=== PATIENT | male | born 1990 | race Caucasian/White ===

== ENCOUNTER 2020-06-30 21:00 | Emergency (ER) | payer OTHER ==
[~2020-06-30] VITALS: Ht 165.1 cm; Wt 77.9 kg
[2020-06-30 23:19] LABS: BASO # 0.1 10^3/uL (0.0-0.2); BASO % 0.7 % (0.0-1.0); EOS # 0.4 10^3/uL (0.0-0.5); EOS % 5.8 % (0.0-3.0); HEMATOCRIT 41.5 % (42.0-52.0); HEMOGLOBIN 14.1 g/dl (13.5-17.5); LYMPH # 2.4 10^3/uL (1.5-5.0); LYMPH % 32.7 % (24.0-44.0); MEAN CORPUSCULAR HEMOGLOBIN 30.5 pg (27.0-33.0); MEAN CORPUSCULAR VOLUME 89.6 fl (80.0-96.0); MONO # 0.5 10^3/uL (0.0-0.8); MONO % 7.4 % (2.0-8.0); NEUTROPHILS # 3.9 10^3/uL (1.5-8.5); NEUTROPHILS % 53.3 % (36.0-66.0); PLATELET COUNT, AUTOMATED 189 10^3/uL (150-450); RED BLOOD COUNT 4.63 10^6/uL (4.30-6.10); WHITE BLOOD COUNT 7.3 10^3/uL (4.0-10.0)
[2020-07-01] MEDS ORDERED: RALTEGRAVIR 400 MG TAB (ISENTRESS) PO SCH
[2020-07-01] MEDS ORDERED: TRUVADA 200MG/300MG TABLET PO SCH
[2020-07-01 00:08] VITALS: BP 130/77
[2020-07-01 00:23] LABS: ALT/SGPT 27 U/L (12-78); BILIRUBIN,TOTAL 0.5 MG/DL (0.2-1.0); BLOOD UREA NITROGEN 21 MG/DL (7-18); CALCIUM LEVEL 8.9 MG/DL (8.5-10.1); CARBON DIOXIDE LEVEL 28 MEQ/L (21-32); CHLORIDE LEVEL 109 MEQ/L (98-107); CREATININE FOR GFR 1.07 MG/DL (0.70-1.30); GLOMERULAR FILTRATION RATE > 60.0 (>60); GLUCOSE, FASTING 96 MG/DL (70-100); POTASSIUM SERUM 3.7 MEQ/L (3.5-5.1); SODIUM LEVEL 142 MEQ/L (136-145); TOTAL PROTEIN 6.9 GM/DL (6.4-8.2)
[2020-07-01] MEDS ORDERED: EMTR1TAB16 PO (00:28)
[2020-07-01] MEDS ORDERED: RALT40TA PO (00:28)
[2020-07-01] MEDS ORDERED: RALTEGRAVIR 400 MG TAB (ISENTRESS) PO ONE (00:30)
[2020-07-01] MEDS ORDERED: EXPOSURE KIT-ADULT 7 DAY SUPPLY PO ONE (00:30)
[2020-07-01] MEDS ORDERED: TRUVADA 200MG/300MG TABLET PO ONE (00:30)
[2020-07-01 09:20] LABS: HEPATITIS B SURFACE ANTIBODY POSITIVE (POSITIVE)
[2020-07-01 09:31] LABS: HEPATITIS B SURFACE ANTIGEN NEGATIVE (NEGATIVE)
[2020-07-01 09:59] LABS: HIV 1&2 SCREEN CENTAUR NEGATIVE (NEGATIVE)
== END 2020-07-01 01:10 | disposition home or self-care (01) ==
LOC: M ED 21:00
DX: S41.131A Puncture wound without foreign body of right upper arm, initial encounter (principal); W46.1XXA Contact with contaminated hypodermic needle, initial encounter; Y92.138 Other place on military base as the place of occurrence of the external cause; Y93.89 Activity, other specified; Y99.1 Military activity

== ENCOUNTER 2020-08-31 17:31 | Emergency (ER) | payer OTHER ==
[~2020-08-31] VITALS: Ht 165.1 cm; Wt 76.4 kg
[~2020-08-31 17:31] MED LIST: EMTR1TAB16 PO; RALT40TA PO
[2020-08-31] MEDS ORDERED: ACETAMINOPHEN 500 MG TAB PO ONE (20:20)
[2020-08-31] MEDS ORDERED: ceFAZolin SOD 1 GM in D5W MINI-BAG PLUS 50 ML IV ONE (20:20)
[2020-08-31] MEDS ORDERED: LIDOCAINE 1% MDV 20ML VIAL INFIL ONE (21:40)
--- NOTE | 2020-08-31 21:48 | REPVR ---
PROCEDURE INFORMATION: Exam: XR Right Finger(s) Exam date and time: 08/31/2020 8:25 PM Age: 30 years old Clinical indication: Other: R 2nd digit laceration; Additional info: R index finger lac with ? tendon involvement TECHNIQUE: Imaging protocol: XR Right fingers. Views: Minimum 2 views. COMPARISON: No relevant prior studies available. FINDINGS: Bones/joints: Joint spaces are normal. No fracture or malalignment. Soft tissues: Normal. No radiopaque foreign bodies. IMPRESSION: No fracture or malalignment. Electronically signed by: Ilir Hayes On 08/31/2020 21:47:39 PM
[2020-08-31] MEDS ORDERED: CEPH500C PO (22:02)
[2020-08-31 22:14] VITALS: BP 132/91
== END 2020-08-31 22:27 | disposition home or self-care (01) ==
LOC: M ED 17:31
DX: S61.210A Laceration without foreign body of right index finger without damage to nail, initial encounter (principal); S66.320A Laceration of extensor muscle, fascia and tendon of right index finger at wrist and hand level, initial encounter; W26.0XXA Contact with knife, initial encounter; Y92.138 Other place on military base as the place of occurrence of the external cause; Y93.89 Activity, other specified; Y99.1 Military activity
CPT/HCPCS: 12001; 73140; 96365; 99283; J0690